=== PATIENT | male | born 1945 | race Caucasian/White ===

== ENCOUNTER 2021-12-07 07:43 | Inpatient (IN) | payer MEDICARE, BC ==
[~2021-12-07] VITALS: Ht 188 cm; Wt 109.9 kg
[2021-12-07] VITALS (48 sets, daily range): BP systolic 57–131; BP diastolic 36–61
--- NOTE | 2021-12-07 07:43 | NUR ---
PATIENT [id number] FROM HOME C/O PER CAREGIVER PT FOUND ON FLOOR UNRESPONSIVE. PATIENT Bradypnea, a/o x 0. patient taken to er bed 5, er md at bedside. patient connected to monitor tech and pox.
--- NOTE | 2021-12-07 07:43 | NUR ---
IV LINE ESTABLISHED G20 R HAND.
--- NOTE | 2021-12-07 07:45 | NUR ---
POC BS ACCUCHECK 111; DR. SHARRI RAMOS AWARE
--- NOTE | 2021-12-07 07:45 | NUR ---
100MG PROPOFOL GIVEN ORDERED BY .
[2021-12-07] MEDS ORDERED: PROPOFOL 200 MG/20 ML VIAL IV ONE ×2 (07:46→09:00)
--- NOTE | 2021-12-07 07:47 | NUR ---
INTUBATION DONE BY . ET SIZE 8, 26 AT THE LIP AND POSITIVE COLOR CHANGED ON CO2 INDICATOR.
[2021-12-07] MEDS ORDERED: PROPOFOL 100 ML ONE (07:48)
--- NOTE | 2021-12-07 07:52 | NUR ---
16FR F/C PATENT AND INTACT. URINE COLLECTED AND SENT TO LAB
--- NOTE | 2021-12-07 07:54 | NUR ---
SENIOR NURSE MANAGER AT PT'S BEDSIDE
[2021-12-07] MEDS ORDERED: IV NS 0.9% 1,000 ML BAG IV ONE ×3 (08:00→10:00)
--- NOTE | 2021-12-07 08:02 | NUR ---
COVID ANTIGEN AND INFLUENZA SWAB COLLECTED AND SENT TO LAB
--- NOTE | 2021-12-07 08:03 | NUR ---
LASTEST BP 80/30 AWARE. 1 L NORMAL SALINE STARTED.
[2021-12-07 08:44] LABS: BILIRUBIN,URINE SMALL (NEGATIVE); COLOR,URINE YELLOW (YELLOW); LEUKOCYTE ESTERASE ,URINE NEGATIVE (NEGATIVE); NITRITE, URINE NEGATIVE (NEGATIVE); PH,URINE 5.5 (5.0-8.0); PROTEIN,URINE 100 mg/dl (NEGATIVE); UGLUCOSE NEGATIVE (NEGATIVE); UROBILINOGEN,URINE 0.2 EU/dL (0.2)
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
--- NOTE | 2021-12-07 08:53 | NUR ---
INSIDE B2B SALES AT BEDSIDE
[2021-12-07 08:55] LABS: BACTERIA,URINE None seen /HPF (None Seen); MUCUS,URINE Few /LPF (None Seen); SQUAMOUS EPITHELIAL CELL,UR Few /HPF (None Seen); WBC,URINE 0-2 /HPF (0-3)
[2021-12-07 09:13] LABS: ABG BASE EXCESS -12.9 mmol/L; ABG PCO2 33.7 mmHg (35.0-45.0); ABG PH 7.224 (7.350-7.450); ABG PO2 476.3 mmHg (75.0-100.0); COHb 0.2 % (0.5-1.5); MetHb 0.5 % (0.0-1.5); PEEP,BG 5 cm H2O; SITE, ABG Right Brachial; VENT MODE, BG AC 100%; VT, ABG 500 mL
--- NOTE | 2021-12-07 09:16 | NUR ---
PT IS WHEELED TO CT SCAN VIA ACLS PROTOCOL.
[2021-12-07] MEDS ORDERED: CEFEPIME 1 GM in IV D5W 50 ML IV ONE (10:00)
[2021-12-07] MEDS ORDERED: CEFEPIME 2 GM in IV D5W 100 ML IV SCH (10:00)
--- NOTE | 2021-12-07 10:25 | NUR ---
CALLED PATIENT FOR PICC LINE CONSENT, NO ANSWER, LEFT MESSAGE
--- NOTE | 2021-12-07 10:28 | NUR ---
PICC LINE NURSE AT BEDSIDE FOR PICC LINE INSERTION
[2021-12-07 10:56] LABS: MONOCYTES # (AUTO) 0.3 K/uL (0.1-1.30)
[2021-12-07 11:01] LABS: EOSINOPHILS % (AUTO) 0.4 % (0.0-6.0); HEMATOCRIT 35 % (39-51); LYMPHOCYTES # (AUTO) 0.3 K/uL (0.8-4.8); LYMPHOCYTES % (AUTO) 2.9 % (20.0-44.0); MEAN CORPUSCULAR HGB CONC 32 g/dl (31.0-36.0); MEAN CORPUSCULAR VOLUME 89 fL (80-96); NEUTROPHILS % (AUTO) 93.7 % (43.0-81.0); PLATELET COUNT (AUTO) 102 K/uL (150-450); RED BLOOD CELL COUNT(AUTO) 3.94 MIL/uL (4.5-6.0); WHITE BLOOD COUNT (AUTO) 10.7 K/uL (4.3-11.0)
--- NOTE | 2021-12-07 11:03 | NUR ---
BED 255
[2021-12-07 11:16] LABS: ALANINE AMINOTRANSFERASE 222 U/L (12-78); ALBUMIN 1.7 g/dL (3.4-5.0); ALCOHOL, BLOOD < 3 mg/dL (0-0); ALKALINE PHOSPHATASE 33 U/L (46-116); ASPARTATE AMINOTRANSFERASE 385 U/L (15-37); BILIRUBIN,DIRECT 0.8 mg/dL (0.0-0.2); BILIRUBIN,TOTAL 1.2 mg/dL (0.2-1.0); CALCIUM, SERUM 6.4 mg/dL (8.5-10.1); CARBON DIOXIDE 17 mmol/L (21-32); CHLORIDE 110 mmol/L (98-107); GLUCOSE 146 mg/dL (74-106); POTASSIUM 5.9 mmol/L (3.5-5.1); SODIUM SERUM 142 mmol/L (136-145); TOTAL PROTEIN, SERUM 3.7 g/dL (6.4-8.2)
[2021-12-07 11:17] LABS: UREA NITROGEN, BLOOD 84 mg/dL (7-18)
[2021-12-07] MEDS ORDERED: DEXTROSE 50%-WATER 50 ML DISP.SYRIN ONE (11:26)
[2021-12-07] MEDS ORDERED: SODIUM BICARBONATE SYR 50 MEQ/50 ML DISP.SYRIN ONE (11:26)
[2021-12-07] MEDS ORDERED: CALCIUM CHLORIDE 1,000 MG/10 ML DISP.SYRIN ONE (11:26)
[2021-12-07] MEDS ORDERED: INSULIN REGULAR, HUMAN 100 UNIT/ML 10 ML VIAL ONE (11:26)
[2021-12-07] MEDS ORDERED: CALCIUM CHLORIDE 1,000 MG/10 ML DISP.SYRIN IV ONE (11:30)
[2021-12-07] MEDS ORDERED: DEXTROSE 50%-WATER 50 ML DISP.SYRIN IV ONE (11:30)
[2021-12-07] MEDS ORDERED: SODIUM BICARBONATE SYR 50 MEQ/50 ML DISP.SYRIN IV ONE (11:30)
[2021-12-07] MEDS ORDERED: INSULIN REGULAR, HUMAN 100 UNIT/ML 10 ML VIAL IV ONE (11:30)
--- NOTE | 2021-12-07 11:41 | NUR ---
REPORT GIVEN TO KAITLYNN HANLEY FOR [facility]
--- NOTE | 2021-12-07 11:47 | NUR ---
AT BEDSIDE FOR EVAL.
[2021-12-07] MEDS ORDERED: PROPOFOL 1,000 MG/100 ML BOTTLE IV ONE (12:00)
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
[2021-12-07] MEDS ORDERED: NOREPINEPHRINE 8 MG in IV NS 0.9% 242 ML IV PRN (12:30)
[2021-12-07] MEDS ORDERED: MAG HYDROX/AL HYDROX/SIMETH 30 ML UDC PO PRN (12:30)
[2021-12-07] MEDS ORDERED: ONDANSETRON HCL/PF 4 MG/2 ML VIAL IVP PRN (12:30)
[2021-12-07] MEDS ORDERED: Z GUARD REMEDY 4 OZ OINT TP PRN (12:30)
[2021-12-07] MEDS ORDERED: MAGNESIUM HYDROXIDE 30 ML UDC PO PRN (12:30)
[2021-12-07] MEDS ORDERED: DEXTROSE 50%-WATER 50 ML DISP.SYRIN IV PRN (12:30)
[2021-12-07] MEDS: PANTOPRAZOLE 40 MG VIAL IV SCH (12:50)
--- NOTE | 2021-12-07 13:00 | NUR ---
ICU/TEXTILE DESIGNER AT BEDSIDE.PT IS FULL CODE.FOR NOW.PATIENT'S WATCH SEND HOME WITH STEPSON.
[2021-12-07] MEDS: Sodium Bicarbonate 100 MEQ in IV D5 / 0.2% NACL 1,000 ML IV SCH ×2 (13:19→22:10)
[2021-12-07] MEDS: PROPOFOL 100 ML IV PRN ×2 (13:24→18:27)
[2021-12-07 13:25] LABS: SERUM AMMONIA 38 umol/L (11-32)
[2021-12-07] MEDS ORDERED: ASPI-1169 PO (14:39)
[2021-12-07] MEDS ORDERED: PIOG45TA5 PO (14:39)
[2021-12-07] MEDS ORDERED: SIMV-46 PO (14:39)
[2021-12-07] MEDS ORDERED: SERT100T PO (14:39)
[2021-12-07] MEDS ORDERED: MULT-1196 PO (14:39)
[2021-12-07] MEDS ORDERED: SOLI10TA2 PO (14:39)
[2021-12-07] MEDS ORDERED: FOLI0.8T3 PO (14:39)
[2021-12-07] MEDS: NOREPINEPHRINE 8 MG in IV NS 0.9% 242 ML IV PRN (14:48)
[2021-12-07 17:17] LABS: THYROID STIMULATING HORMONE 9.038 uIU/mL (0.358-3.74)
[2021-12-07 17:48] LABS: BAND % (MANUAL) 20 % (0.0-5.0); LYMPHOCYTES % (MANUAL) 3 % (16-48); MONOCYTES % (MANUAL) 1 % (0-11.0); MYELOCYTES % 6 % (0-0); NEUTROPHILS % (MANUAL) 70 (42-76)
--- NOTE | 2021-12-07 17:50 | NUR ---
RT Pt intubated by ER physician Jorge Luis with 8.0 ett-positioned at 26cm @ the lip.Positive color change,bilateral chest rise, bilateral breath sounds. Ett secured via anchorfast. Pt placed on vent ac 18 500 100% +5. Ambu bag at bedside Vent settings changed as notde post ABG results per MD Kang. Will continue to monitor.
[2021-12-07] MEDS: BLOOD SUGAR DIAGNOSTIC 1 EACH STRIP IN SCH ×2 (18:26→23:17)
[2021-12-07] MEDS ORDERED: CEFEPIME 1 GM in IV D5W 50 ML IV SCH (21:00)
[2021-12-07] MEDS ORDERED: HEPARIN SODIUM, PORCINE 5000 UNITS/1 ML VIAL SQ SCH (21:00)
[2021-12-07] MEDS: INSULIN REGULAR, HUMAN 100 UNIT/ML 3 ML VIAL SQ PRN (23:18)
[2021-12-08] VITALS (97 sets, daily range): BP systolic 79–128; BP diastolic 39–88
[2021-12-08] MEDS: PROPOFOL 100 ML IV PRN ×3 (00:59→20:25)
[2021-12-08] MEDS: NOREPINEPHRINE 8 MG in IV NS 0.9% 242 ML IV PRN ×2 (01:26→11:26)
[2021-12-08] MEDS: ACETAMINOPHEN 650 MG/SUPP.RECT RC PRN ×2 (03:54→21:58)
[2021-12-08 05:08] LABS: BASOPHILS % (AUTO) 0.2 % (0.0-2.0); HEMATOCRIT 38 % (39-51); HEMOGLOBIN 12.1 g/dL (13.5-17.5); LYMPHOCYTES # (AUTO) 0.4 K/uL (0.8-4.8); LYMPHOCYTES % (AUTO) 2.6 % (20.0-44.0); MEAN CORPUSCULAR HGB CONC 32 g/dl (31.0-36.0); MEAN CORPUSCULAR VOLUME 87 fL (80-96); MONOCYTES # (AUTO) 0.7 K/uL (0.1-1.30); MONOCYTES % (AUTO) 4.4 % (2.0-12.0); NEUTROPHILS # (AUTO) 14.2 K/uL (1.8-8.9); NEUTROPHILS % (AUTO) 92.8 % (43.0-81.0); PLATELET COUNT (AUTO) 124 K/uL (150-450); RED BLOOD CELL COUNT(AUTO) 4.35 MIL/uL (4.5-6.0); WHITE BLOOD COUNT (AUTO) 15.3 K/uL (4.3-11.0)
[2021-12-08 05:36] LABS: CALCIUM, SERUM 6.5 mg/dL (8.5-10.1); CARBON DIOXIDE 20 mmol/L (21-32); CHLORIDE 105 mmol/L (98-107); CREATININE 4.6 mg/dL (0.6-1.3); GLUCOSE 243 mg/dL (74-106); MAGNESIUM 2.6 mg/dL (1.8-2.4); PHOSPHORUS 7.5 mg/dL (2.5-4.9)
[2021-12-08 05:54] LABS: SODIUM SERUM 140 mmol/L (136-145)
[2021-12-08 06:03] LABS: POTASSIUM 6.3 mmol/L (3.5-5.1); UREA NITROGEN, BLOOD 93 mg/dL (7-18)
[2021-12-08] MEDS: BLOOD SUGAR DIAGNOSTIC 1 EACH STRIP IN SCH ×4 (06:07→23:14)
[2021-12-08] MEDS: INSULIN REGULAR, HUMAN 100 UNIT/ML 3 ML VIAL SQ PRN ×4 (06:15→23:16)
[2021-12-08 06:23] LABS: TRIGLYCERIDES 327 mg/dL (30-150)
[2021-12-08] MEDS ORDERED: INSULIN REGULAR, HUMAN 100 UNIT/ML 3 ML VIAL IV ONE (06:30)
[2021-12-08] MEDS ORDERED: DEXTROSE 50%-WATER 50 ML DISP.SYRIN IVP ONE ×2 (06:30→09:00)
[2021-12-08] MEDS: Sodium Bicarbonate 100 MEQ in IV D5 / 0.2% NACL 1,000 ML IV SCH (06:50)
--- NOTE | 2021-12-08 07:45 | NUR ---
ICU/RN PT IS INTUBATED ON THE VENT AC MODE.FIO2-50%.SAT O2-99%.SEDATED WITH DIPRIVAN.ON LEVOPHED DRIP.AND IV FLUIDS ORDERED.RIGHT UPPER ARM PICC LINE.T-101.4 COOLING BLANKET APPLIED.OG TUBE ON INTERMEDIATE SUCTION DRAINING WITH GREEN GASTRIC DRAINAGE.F/C IN PLACED NO URINE OUTPUT.LABS REVIEW .MD NOTIFIED.DUE MEDS ARE GIVEN ORDERED. REPOSITION FOR COMFORT.
[2021-12-08] MEDS: PANTOPRAZOLE 40 MG VIAL IV SCH (08:06)
[2021-12-08] MEDS: IV NS 0.9% 1,000 ML IV SCH ×2 (08:44→17:41)
[2021-12-08] MEDS ORDERED: INSULIN REGULAR, HUMAN 100 UNIT/ML 3 ML VIAL SQ ONE (09:00)
[2021-12-08] MEDS ORDERED: Calcium Gluconate 0.465 MEQ/ML VIAL IV ONE (09:00)
[2021-12-08] MEDS ORDERED: CEFEPIME 2 GM in IV D5W 100 ML IV SCH (10:00)
[2021-12-09] VITALS (54 sets, daily range): BP systolic 69–121; BP diastolic 16–97
[2021-12-09] MEDS: NOREPINEPHRINE 8 MG in IV NS 0.9% 242 ML IV PRN (00:11)
[2021-12-09] MEDS: IV NS 0.9% 1,000 ML IV SCH (01:15)
[2021-12-09] MEDS: PROPOFOL 100 ML IV PRN ×2 (03:26→10:31)
[2021-12-09 05:22] LABS: CARBON DIOXIDE 22 mmol/L (21-32); CHLORIDE 107 mmol/L (98-107); CREATININE 5.1 mg/dL (0.6-1.3); GLUCOSE 255 mg/dL (74-106); SODIUM SERUM 141 mmol/L (136-145)
[2021-12-09 05:31] LABS: BASOPHILS % (AUTO) 0.1 % (0.0-2.0); HEMATOCRIT 33 % (39-51); HEMOGLOBIN 10.6 g/dL (13.5-17.5); LYMPHOCYTES # (AUTO) 0.7 K/uL (0.8-4.8); MEAN CORPUSCULAR HGB CONC 32 g/dl (31.0-36.0); MEAN CORPUSCULAR VOLUME 87 fL (80-96); MONOCYTES # (AUTO) 0.5 K/uL (0.1-1.30); NEUTROPHILS # (AUTO) 10.5 K/uL (1.8-8.9); NEUTROPHILS % (AUTO) 89.9 % (43.0-81.0); PLATELET COUNT (AUTO) 81 K/uL (150-450); RED BLOOD CELL COUNT(AUTO) 3.78 MIL/uL (4.5-6.0); WHITE BLOOD COUNT (AUTO) 11.7 K/uL (4.3-11.0)
[2021-12-09] MEDS: BLOOD SUGAR DIAGNOSTIC 1 EACH STRIP IN SCH (05:33)
[2021-12-09 05:48] LABS: CALCIUM, SERUM 5.7 mg/dL (8.5-10.1); UREA NITROGEN, BLOOD 100 mg/dL (7-18)
[2021-12-09] MEDS: INSULIN REGULAR, HUMAN 100 UNIT/ML 3 ML VIAL SQ PRN (05:57)
[2021-12-09 08:00] LABS: BAND % (MANUAL) 6 % (0.0-5.0); LYMPHOCYTES % (MANUAL) 7 % (16-48); MONOCYTES % (MANUAL) 4 % (0-11.0); NEUTROPHILS % (MANUAL) 83 (42-76)
[2021-12-09] MEDS ORDERED: SODIUM POLYSTYRENE SULFONATE 15 G/60 ML BOTTLE NG ONE (08:30)
[2021-12-09] MEDS ORDERED: IV NS 0.9% 1,000 ML IV PRN (08:30)
--- NOTE | 2021-12-09 09:00 | NUR ---
DR ROSENTHAL NOTIFIED OF POTASSIUM 6.0, BUN/CR 100/5.1. PT'S AT BEDSIDE SIGNED CONSENTS FOR HD CATHETER INSERTION AND DIALYSIS. AM MEDS HELD TILL AFTER DIALSYS THIS AM
[2021-12-09] MEDS ORDERED: KETAMINE HCL (500MG/10ML) 50 MG/ML VIAL ONE (10:02)
--- NOTE | 2021-12-09 11:32 | NUR ---
Spoke to Sami STERLING HD catheter in [facility] inplace and ok to use HD catheter.
[2021-12-09] MEDS ORDERED: ALBUMIN 25% 25 GM in PREMIX 1 EA IV PRN (12:00)
--- NOTE | 2021-12-09 12:38 | NUR ---
HD WAS STARTED AT 1140, SHORTLY AFTER HD STARTED PT'S HEART RATE BECAME IRREGULAR AND BP STARTED DROPPING. LEVOPHED WAS TITRATED UP SEVERAL TIMES PER MD ORDERS. AT 1222 HEARTRATE DROPPED TO LOW 30'S UNABLE TO OBTAIN BP. RN INSTRUCTED DIALYSIS NURSE TO STOP HD. HD RN ATTEMPTED TO RETURN BLOOD TO PATIENT BUT AT 1224 PT BECAME PEA, CODE BLUE WAS CALLED. SEE CODE DOCUMENTATION FOR DETAILS. PT WAS PRONOUNCED BY DR LIVINGSTON AT 1238.
--- NOTE | 2021-12-09 12:40 | NUR ---
RT At 1224, dory jaime called. ER MD and RNs at bedside. 5 RTs present. Bagged patient and CPR initiated. Patient at 1238.
[2021-12-09] MEDS ORDERED: Magnesium 1 GM/2 ML VIAL IV ONE (13:21)
[2021-12-09] MEDS ORDERED: EPINEPHRINE (1:10,000) SYRINGE 1 MG/10 ML DISP.SYRIN IVP ONE (13:21)
[2021-12-09] MEDS ORDERED: CALCIUM CHLORIDE 1,000 MG/10 ML DISP.SYRIN IV ONE (13:21)
[2021-12-09] MEDS ORDERED: FEE EMEERGENCY 1 MIN EA MC ONE (13:21)
--- NOTE | 2021-12-09 15:10 | NUR ---
PATIENT WAS TAKEN TO [facility] BY SECURITY. PT'S AND STEP SON SAW THE BODY PRIOR. THE SIGNED THE FORM RELEASING THE BODY TO THE [place]. THE STEP SON PROVIDED MORTUARY INFORMATION.
== END 2021-12-09 18:01 | DRG 871 ==
LOC: ER 07:45 → ICU 11:49
PROVIDERS: ADMIT Nurse Practitioner Acute Care; ATTEND Legal Medicine
PROC: 5A1945Z Respiratory Ventilation, 24-96 Consecutive Hours (ICD-10-PCS; principal; 2021-12-07)
PROC: 0BH17EZ Insertion of Endotracheal Airway into Trachea, Via Natural or Artificial Opening (ICD-10-PCS; 2021-12-07)
PROC: 02HV33Z Insertion of Infusion Device into Superior Vena Cava, Percutaneous Approach (ICD-10-PCS; 2021-12-07)
PROC: B548ZZA Ultrasonography of Superior Vena Cava, Guidance (ICD-10-PCS; 2021-12-07)
PROC: 05HM33Z Insertion of Infusion Device into Right Internal Jugular Vein, Percutaneous Approach (ICD-10-PCS; 2021-12-09)
PROC: B543ZZA Ultrasonography of Right Jugular Veins, Guidance (ICD-10-PCS; 2021-12-09)
PROC: 5A1D70Z Performance of Urinary Filtration, Intermittent, Less than 6 Hours Per Day (ICD-10-PCS; 2021-12-09)
DX: A41.9 Sepsis, unspecified organism (principal); G92.8 Other toxic encephalopathy; J96.01 Acute respiratory failure with hypoxia; J69.0 Pneumonitis due to inhalation of food and vomit; R65.21 Severe sepsis with septic shock; N17.0 Acute kidney failure with tubular necrosis; I21.A1 Myocardial infarction type 2; I13.0 Hypertensive heart and chronic kidney disease with heart failure and stage 1 through stage 4 chronic kidney disease, or unspecified chronic kidney disease; M62.82 Rhabdomyolysis; E87.2 Acidosis; Z20.822 Contact with and (suspected) exposure to COVID-19; E78.5 Hyperlipidemia, unspecified; E78.00 Pure hypercholesterolemia, unspecified; E11.22 Type 2 diabetes mellitus with diabetic chronic kidney disease; I50.9 Heart failure, unspecified; N18.9 Chronic kidney disease, unspecified; Z88.5 Allergy status to narcotic agent; Z95.1 Presence of aortocoronary bypass graft; Z87.891 Personal history of nicotine dependence; E87.5 Hyperkalemia; D63.8 Anemia in other chronic diseases classified elsewhere; D69.6 Thrombocytopenia, unspecified; I25.10 Atherosclerotic heart disease of native coronary artery without angina pectoris; Z95.2 Presence of prosthetic heart valve; Z86.73 Personal history of transient ischemic attack (TIA), and cerebral infarction without residual deficits; E86.0 Dehydration; R57.1 Hypovolemic shock
CPT/HCPCS: 31720; 36415; 36600; 70450-TC; 71045-TC; 73502; 76770-TC; 80048-TC; 80076-TC; 81001; 82140-TC; 82550-TC; 82553; 82803-TC; 82962-TC; 83605-TC; 83735-TC; 83880; 84100-TC; 84443-TC; 84478-TC; 84484-TC; 85025-TC; 85730-TC; 86706; 87040-TC; 87086-TC; 87340; 90935-TC; 93307-TC; 94002-TC; 94003-TC; 94760-TC; 94762-TC; 94799-TC; A4216; C1750; C9113; C9803; G0378; G0480; J0171; J0610; J0692; J1815; J2704; J3475; J3490; J7030; J7040; J7050; J7060; P9047